=== PATIENT | male | born 1970 | race Two or more races ===

== ENCOUNTER 2017-01-04 09:03 | Day surgery (SDC) | payer BC ==
[~2017-01-04 09:03] MED LIST: Buffered Lidocaine 0.9% SYRIN* 5 ML/SYR SYRINGE INTRADERM ONE
[2017-01-04] MEDS ORDERED: ceFAZolin 2 GM PREMIX(*) 2 GM/50 ML BAG IVPB ONE (09:10)
[2017-01-04] MEDS ORDERED: Buffered Lidocaine 0.9% SYRIN* 5 ML/SYR SYRINGE ONE (09:10)
[2017-01-04] MEDS ORDERED: Bupivacaine 0.5% SDV PF* 30 ML VIAL ONE (10:21)
[2017-01-04] MEDS ORDERED: Midazolam* 1 MG/ML 5 ML VIAL (5 MG) ONE ×2 (11:34→12:19)
[2017-01-04] MEDS ORDERED: Lidocaine 1% INJ* 10 MG/ML 30 ML SDV ONE (11:48)
[2017-01-04] MEDS ORDERED: fentaNYL* 50 MCG/ML 2 ML VIAL (100 MCG VIAL) ONE (11:57)
[2017-01-04] MEDS ORDERED: Propofol* 10 MG/ML 20 ML BTL IV PUSH ONE (11:59)
[2017-01-04] MEDS ORDERED: Ketorolac INJ* 30 MG/ML 1 ML VIAL IV PRN (13:31)
[2017-01-04] MEDS ORDERED: Ondansetron INJ* 2 MG/ML VIAL IV PRN (13:31)
[2017-01-04] MEDS ORDERED: fentaNYL* 50 MCG/ML 2 ML VIAL (100 MCG VIAL) IV PRN (13:31)
[2017-01-04] MEDS ORDERED: HYDROcodone/ACETAMIN 5-325 MG* 1 TAB PO PRN (13:31)
[2017-01-04] MEDS ORDERED: oxyCODONE/Acetamin 5/325 MG* TAB ONE (14:34)
[2017-01-04] MEDS: oxyCODONE/Acetamin 5/325 MG* TAB PO PRN ×2 (14:37→14:38)
[2017-01-04 17:56] VITALS: BP 122/88
[2017-01-04] MEDS ORDERED: oxyCODONE TAB* 5 MG TAB ONE (18:05)
--- NOTE | 2017-01-05 08:51 | OP ---
DATE OF OPERATION: 01/04/17 - [facility] DATE OF : 74 SURGEON: Ryan Andrews MD [employer] DEVELOPER: Christa Milligan PA-C ANESTHESIOLOGIST: Doe Monreal MD ANESTHESIA: Spinal PRE-OP DIAGNOSIS: Metatarsalgia, right forefoot. POST-OP DIAGNOSIS: Metatarsalgia, right forefoot. OPERATIVE PROCEDURE: Shortening osteotomy, right second and third metatarsals, and removal of plate because of painful hardware, right first metatarsal. DESCRIPTION OF PROCEDURE: The patient was taken to the operating room where spinal anesthetic was administered. We made a longitudinal incision over the base of the first metatarsal extending this lateral to the extensor longus tendon. Through this incision, we were able to locate the dorsal aspect of the F3 plate, which was removed from the dorsum of the first metatarsal. We then extended the wound laterally over the dorsal aspect of the second and third metatarsals. At this level, we created small dorsal closing wedges with a microsagittal saw. These wedges were pulled shut by dorsiflexion in the second and third metatarsals and then fixed dorsally with straight F3 plates; the rigid one for the second and more flexible for the third. Dorsal to plantar cortical fixation was performed proximal and distal to the osteotomies. X-ray intraoperatively showed satisfactory position of the hardware. We then irrigated thoroughly, closing with Vicryl and nylon sutures, and a compression dressing and plaster splint. [id number] #: [id number] MTDD
== END 2017-01-04 18:10 | disposition home or self-care (01) ==
LOC: OR 09:03
PROVIDERS: ATTEND Orthopaedic Surgery
DX: M77.41 Metatarsalgia, right foot (principal)
CPT/HCPCS: 76000; 88300; A9270-GY; C1713; C1776; J0690; J2001; J2250; J2704; J3010